=== PATIENT | male | born 1975 | race Caucasian/White ===

== ENCOUNTER 2019-06-27 21:23 | Inpatient (IN) | payer MEDICAID, SELFPAY ==
[~2019-06-27] VITALS: Ht 165.1 cm; Wt 70.8 kg
[2019-06-27 21:25] VITALS: BP 121/87
--- NOTE | 2019-06-27 21:44 | NUR ---
PT AMBULATEDF TO ER BED 01
--- NOTE | 2019-06-27 21:44 | NUR ---
Pt placed on pulse ox, and 3 lead ecg.
--- NOTE | 2019-06-27 21:45 | NUR ---
44 YO MALE BIB SELF FOR C/C OF SOB, COUGH, AND FEVER X3 DAYS. PT STATES THAT HIS MOTHER AND SISTER WHO HE LIVES WITH TESTED POSITIVE FOR COVID-19 AND ARE CURRENTLY HOSPITALIZED IN THIS HISPITAL. PT STATES HE TOOK IBUPROFEN FOR FEVER EARLIER TODAY WITH NO RELIEF. S1S2 HEARD. EQUAL RISE AND FALL OF CHEST. CRACKLES HEARD IN BILATERAL BASES. APPETITE CHANGES WITH NAUSEA BUT NO VOMITING. PT STATES HE HAD DIARRHEA STOOL TODAY. BOWEL SOUNDS ACTIVE IN ALL 4 QUADRANTS. CAP REFILL <3. NO EDEMA NOTED. PERIPHERAL PULSES EQUAL AND REGULAR. PT PLACED ON MONITOR. BED LOCKED AND IN LOWEST POSITION. PPE WORN FOR ALL PT INTERATION. NO MED HX NO RX NKA
--- NOTE | 2019-06-27 22:15 | NUR ---
Pt is aaox4, pt care explaine parker pt verbalizes understanding. HL est g20 on pt RtAc, infusing well. Bld drawn at the bedside to be sent to lab after proper labelling. Pt care to Markell MARROQUIN.
--- NOTE | 2019-06-27 22:21 | NUR ---
STAT LABS DRAWN AND GIVEN TO COCOA BEAN ROASTER HELPER.
--- NOTE | 2019-06-27 22:22 | NUR ---
PT UNABLE TO PROVIDE URINE AT THIS TIME.
--- NOTE | 2019-06-27 22:28 | NUR ---
RT AT BEDSIDE.
--- NOTE | 2019-06-27 22:31 | NUR ---
DR. RDZ AT BEDSIDE.
[2019-06-27 22:43] LABS: BASOPHILS % (AUTO) 0.2 % (0.0-2.0); HEMATOCRIT 48.1 % (36-52); HEMOGLOBIN 16.8 g/dL (12.0-18.0); LYMPHOCYTES # (AUTO) 0.7 K/uL (2.0-11.5); LYMPHOCYTES % (AUTO) 11.6 % (20.5-51.1); MEAN CORPUSCULAR HEMOGLOBIN 29 pg (27-31); MEAN CORPUSCULAR HGB CONC 35 g/dL (33-37); MEAN CORPUSCULAR VOLUME 82.1 fL (80-94); MONOCYTES # (AUTO) 0.3 K/uL (0.8-1.0); MONOCYTES % (AUTO) 5.4 % (1.7-9.3); NEUTROPHILS # (AUTO) 4.6 K/uL (1.8-7.7); NEUTROPHILS % (AUTO) 82.8 % (42.2-75.2); PLATELET COUNT (AUTO) 163 K/uL (140-450); RED BLOOD CELL COUNT(AUTO) 5.86 MIL/uL (4.20-6.10); WHITE BLOOD COUNT (AUTO) 5.6 K/uL (4.8-10.8)
--- NOTE | 2019-06-27 22:49 | NUR ---
XR AT BEDSIDE
--- NOTE | 2019-06-27 22:52 | NUR ---
FLU, RSV, AND URINE WALKED OVER TO LAB.
[2019-06-27 23:02] LABS: APPEARANCE,URINE CLEAR (CLEAR); BILIRUBIN,URINE NEGATIVE (NEGATIVE); BLOOD, URINE NEGATIVE (NEGATIVE); COLOR,URINE YELLOW (YELLOW); LEUKOCYTE ESTERASE ,URINE NEGATIVE (NEGATIVE); NITRITE, URINE NEGATIVE (NEGATIVE); UGLUCOSE NEGATIVE (NEGATIVE)
[2019-06-27 23:04] LABS: ALBUMIN 3.7 g/dL (3.4-5.0); ANION GAP 15.4 (8-16); CARBON DIOXIDE 24.9 mmol/L (21-32); CREATININE 1.1 mg/dL (0.6-1.3); POTASSIUM 3.3 mmol/L (3.5-5.1); TOTAL BILIRUBIN 0.7 mg/dL (0.0-1.0)
[2019-06-27 23:12] LABS: PROTHROMBIN TIME 10.4 secs (10.8-13.4)
[2019-06-27 23:18] LABS: C-REACTIVE PROTEIN QUANT 9.1 mg/dL (0.0-0.9); LACTATE DEHYDROGENASE 350 U/L (85-227)
[2019-06-27 23:30] LABS: RSV NEGATIVE (NEGATIVE)
[2019-06-27 23:31] LABS: RBC,URINE 0-5 /HPF (0-5); WBC,URINE 0-5 /HPF (0-5)
[2019-06-28 00:07] LABS: FIBRINOGEN 496 mg/dL (200-400)
--- NOTE | 2019-06-28 00:13 | NUR ---
PT SLEEPING IN BED. SIDE RAILS X1. BED LOCKED AND IN LOWEST POSITION.
[2019-06-28 00:26] LABS: D-DIMER < 100 ng/ml (0-400)
[2019-06-28] MEDS ORDERED: AZITHROMYCIN 500 MG in DEXTROSE 5% 250 ML IV ONE (00:45)
[2019-06-28] MEDS ORDERED: AZITHROMYCIN 500 MG INJ VIAL IV ONE (00:51)
[2019-06-28] MEDS ORDERED: ONDANSETRON 4 MG/2 ML VIAL IVP PRN (01:00)
[2019-06-28] MEDS ORDERED: HYDROcodone/APAP 7.5/325 MG 1 TAB PO PRN (01:00)
[2019-06-28 01:31] LABS: MAGNESIUM 1.9 mg/dL (1.8-2.4); THYROID STIMULATING HORMONE 3.56 uIU/mL (0.34-3.74)
[2019-06-28 01:38] LABS: CHOL/HDL RATIO 3.9 (1-4.5)
[2019-06-28 01:57] LABS: BARBITURATE, URINE NEGATIVE ng/ml (NEG <=200); BENZODIAZEPINE, URINE NEGATIVE ng/mL (NEG <=200); CANNABINOID, URINE NEGATIVE ng/mL (NEG <=50); COCAINE, URINE NEGATIVE ng/mL (NEG <=300); OPIATE, URINE NEGATIVE ng/mL (NEG <=2000); PHENCYCLIDINE SCREEN,URINE NEGATIVE ng/mL (NEG <=25)
--- NOTE | 2019-06-28 02:10 | NUR ---
PT ARRIVED FROM ER VIA GURNEY. REPORT GIVEN BY ER NURSE. PT IS AWAKE, ALERT, AND ORIENTED. ABLE TO MAKE NEEDS KNOWN. COOPERATIVE TO CARE. VITAL SIGNS TAKEN. RESPIRATIONS EVEN AND UNLABORED ON ROOM AIR. TEMP 101.3. IV ACCESS ON R AC G20 CLEAN AND INTACT. AZITHROMYCIN INFUSING FROM ER. PT COMPLAINTS OF MILD BODY ACHES. NOTED TO HAVE INTERMITTENT DRY, NON PRODUCTIVE COUGH. PT ORIENTED TO ROOM. PLAN OF CARE DISCUSSED. CALL LIGHT WITHIN REACH. AWAITING MD ORDERS. WILL CONTINUE TO MONITOR.
--- NOTE | 2019-06-28 02:10 | NUR ---
Patient will be admitted to care of [facility]. Admited to TELE. Will go to room 130. Belongings list completed. Report to PRICILLA MARROQUIN.
[2019-06-28 02:58] VITALS: BP 114/76
[2019-06-28 04:00] VITALS: BP 112/71
[2019-06-28] MEDS: NACL 0.9% 1,000 ML IV SCH ×2 (05:32→21:22)
[2019-06-28] MEDS: ACETAMINOPHEN 325 MG TAB PO PRN ×2 (05:33→21:22)
--- NOTE | 2019-06-28 05:33 | NUR ---
MD ORDERS JUST GOT VERIFIED BY PHARMACY. VITAL SIGNS TAKEN. TEMP 100.9. PRN MEDS GIVEN ORDERED. COOLING MEASURES IN PLACE. CALL LIGHT WITHIN REACH. WILL CONTINUE TO MONITOR.
--- NOTE | 2019-06-28 07:01 | NUR ---
ENDORSED TO DAY SHIFT NURSE FOR CONTINUITY OF CARE. PATIENT IN STABLE CONDITION.
--- NOTE | 2019-06-28 07:15 | NUR ---
RECEIVE REPORT FROM NIGHT NURSE FOR CONTINUITY OF CARE, PT IS AAOX4, PT IS STABLE, NO SIGNS OF DISTRESS NOTED, RESPIRATIONS ARE EVEN AND UNLABORED ON ROOM AIR, PT HAS RIGHT AC 20G IV INFUSING NORMAL SALINE AT50ML/H, INTRODUCE SELF, UPDATED WHITE BOARD, BED IN LOW POSITION, SAFETY MEASURES IN PLACE, ALL NEEDS MET AT THIS TIME, CALL LIGHT WITHIN REACH.
[2019-06-28 08:00] VITALS: BP 101/65
[2019-06-28 08:23] LABS: BASOPHILS % (AUTO) 0.9 % (0.0-2.0); HEMATOCRIT 46.2 % (36-52); HEMOGLOBIN 15.8 g/dL (12.0-18.0); LYMPHOCYTES # (AUTO) 0.9 K/uL (2.0-11.5); LYMPHOCYTES % (AUTO) 20.9 % (20.5-51.1); MEAN CORPUSCULAR HEMOGLOBIN 29 pg (27-31); MEAN CORPUSCULAR HGB CONC 34 g/dL (33-37); MEAN CORPUSCULAR VOLUME 83.2 fL (80-94); MONOCYTES # (AUTO) 0.4 K/uL (0.8-1.0); MONOCYTES % (AUTO) 8.9 % (1.7-9.3); NEUTROPHILS % (AUTO) 69.3 % (42.2-75.2); PLATELET COUNT (AUTO) 140 K/uL (140-450); RED BLOOD CELL COUNT(AUTO) 5.55 MIL/uL (4.20-6.10); RED CELL DISTRIBUTION WIDTH 15.1 % (11.6-13.7); WHITE BLOOD COUNT (AUTO) 4.3 K/uL (4.8-10.8)
[2019-06-28] MEDS ORDERED: ENOXAPARIN 30 MG/0.3 ML SYR SUBQ SCH (09:00)
[2019-06-28 09:25] LABS: ANION GAP 9.7 (8-16); CARBON DIOXIDE 30.2 mmol/L (21-32); CREATININE 1.2 mg/dL (0.6-1.3); POTASSIUM 3.9 mmol/L (3.5-5.1)
[2019-06-28] MEDS: ZINC SULF 220 MG CAP PO SCH (09:32)
[2019-06-28] MEDS: AZITHROMYCIN 250 MG TAB PO SCH (09:32)
[2019-06-28] MEDS: ASCORBIC ACID 500 MG TAB PO SCH (09:32)
--- NOTE | 2019-06-28 09:44 | NUR ---
ADMINISTERED SCHEDULED MEDICATION, MEDICATION EDUCATION GIVEN, PT VERBALIZED UNDERSTANDING, PT TOLERATED MEDICATION WELL, PT IS STABLE, CALL LIGHT WITHIN REACH.
[2019-06-28 09:46] LABS: PHOSPHORUS 3.4 mg/dL (2.5-4.9)
[2019-06-28] MEDS: ENOXAPARIN 40 MG/0.4 ML SYR SUBQ SCH (10:28)
--- NOTE | 2019-06-28 11:42 | NUR ---
ADMINISTERED SCHEDULED MEDICATION, MEDICATION EDUCATION GIVEN, PT VERBALIZED UNDERSTANDING, PT IS STABLE, CALL LIGHT WITHIN REACH.
[2019-06-28 12:00] VITALS: BP 106/68
--- NOTE | 2019-06-28 13:00 | NUR ---
PT IS WATCHING TV IN BED, PT IS STABLE, RESPIRATIONS ARE EVEN AND UNLABORED ON 2L NASAL CANNULA, SAFETY MEASURES IN PLACE, CALL LIGHT WITHIN REACH.
--- NOTE | 2019-06-28 15:10 | NUR ---
PT IS RESTING IN BED, PT IS STABLE, NO SIGNS OF DISTRESS NOTED, RESPIRATIONS ARE EVEN AND UNLABORED ON 2L NASAL CANNULA, CALL LIGHT WITHIN REACH.
[2019-06-28 16:00] VITALS: BP 113/73
--- NOTE | 2019-06-28 17:00 | NUR ---
PT RESTING IN BED, NO SIGNS OF DISTRESS NOTED, PT IS STABLE, CALL LIGHT WITHIN REACH.
--- NOTE | 2019-06-28 19:08 | NUR ---
GAVE REPORT TO NIGHT NURSE FOR CONTINUITY OF CARE, PT IS STABLE.
--- NOTE | 2019-06-28 19:09 | NUR ---
RECEIVED REPORT FROM STATION MANAGER NURSE. PATIENT IN BED RESTING. HOB ELEVATED. ON O2 2LPM/NC. RESPIRATIONS EVEN AND UNLABORED. DENIES ANY PAIN OR DISCOMFORT AT THIS TIME. IV ACCES ON R AC CLEAN AND INTACT. IVF INFUSING WELL. PLAN OF CARE DISCUSSED. PATIENT VERBALIZED UNDERSTANDING. CALL LIGHT WITHIN REACH. WILL CONTINUE TO MONITOR.
[2019-06-28 20:00] VITALS: BP 113/65
--- NOTE | 2019-06-28 21:22 | NUR ---
VITAL SIGNS TAKEN. TEMP 101.6. PRN TYLENOL GIVEN ORDERED. COOLING MEASURES IN PLACE. RESPIRATIONS EVEN AND UNLABORED. O2 SAT 100. DENIES PAIN OR DISCOMFORT AT THIS TIME. CALL LIGHT WITHIN REACH. WILL CONTINUE TO MONITOR.
--- NOTE | 2019-06-28 22:22 | NUR ---
PT IN BED SLEEPING. O2 IN PLACE. O2 SAT 99%. PT KEPT COMFORTABLE. CALL LIGHT WITHIN REACH. WILL CONTINUE TO MONITOR.
[2019-06-29] VITALS: BP 103/64
--- NOTE | 2019-06-29 00:07 | NUR ---
VITAL SIGNS TAKEN. PATIENT AFEBRILE NOW. DENIES ANY DISCOMFORT AT THIS TIME. O2 IN PLACE. RESPIRATIONS EVEN AND UNLABORED. PT KEPT SAFE AND COMFORTABLE. WILL CONTINUE TO MONITOR.
--- NOTE | 2019-06-29 01:59 | NUR ---
PT SLEEPING. O2 SAT 96%. O2 IN PLACE. NO S/SX OF RESPIRATORY DISTRESS NOTED. WILL CONTINUE TO MONITOR.
[2019-06-29 04:00] VITALS: BP 111/61
--- NOTE | 2019-06-29 04:02 | NUR ---
VITAL SIGNS STABLE. PT AFEBRILE. RESPIRATIONS EVEN AND UNLABORED. NOT IN DISTRESS. CALL LIGHT WITHIN REACH. WILL CONTINUE TO MONITOR.
--- NOTE | 2019-06-29 06:59 | NUR ---
PATIENT HAS BEEN SCREENED AND CATEGORIZED LOW NUTRITION RISK. PATIENT WILL BE SEEN WITHIN 7 DAYS OF ADMISSION. 07/06/19 ORALIA BEARD MS, RDN
[2019-06-29 07:10] LABS: ANION GAP 13.1 (8-16); CARBON DIOXIDE 27.1 mmol/L (21-32); CREATININE 1.1 mg/dL (0.6-1.3); POTASSIUM 4.2 mmol/L (3.5-5.1)
--- NOTE | 2019-06-29 07:12 | NUR ---
ENDORSED TO DAYSHIFT NURSE FOR CONTINUITY OF CARE. PATIENT IN STABLE CONDITION.
[2019-06-29 07:13] LABS: LACTATE DEHYDROGENASE 294 U/L (85-227)
--- NOTE | 2019-06-29 07:13 | NUR ---
RECEIVED REPORT FROM ELECTRIC TRUCK DRIVER NURSE AT BEDSIDE FOR CONTINUITY OF CARE. PATIENT IN BED RESTING SLEEPING, RESPIRATIONS EVEN AND UNLABORED ON ROOM AIR, O2 SATURATION 92%. DENIES ANY PAIN OR DISCOMFORT AT THIS TIME. IV ACCES ON R AC CLEAN AND INTACT. IVF INFUSING WELL. DROPLET PRECAUTIONS IN PLACE, CALL LIGHT WITHIN REACH. WILL CONTINUE TO MONITOR.
[2019-06-29 07:15] LABS: BASOPHILS % (AUTO) 0.7 % (0.0-2.0); HEMATOCRIT 48.5 % (36-52); HEMOGLOBIN 16.6 g/dL (12.0-18.0); LYMPHOCYTES # (AUTO) 0.6 K/uL (2.0-11.5); LYMPHOCYTES % (AUTO) 13.2 % (20.5-51.1); MEAN CORPUSCULAR HEMOGLOBIN 29 pg (27-31); MEAN CORPUSCULAR HGB CONC 34 g/dL (33-37); MEAN CORPUSCULAR VOLUME 83.7 fL (80-94); MONOCYTES # (AUTO) 0.3 K/uL (0.8-1.0); NEUTROPHILS # (AUTO) 3.5 K/uL (1.8-7.7); NEUTROPHILS % (AUTO) 80.1 % (42.2-75.2); PLATELET COUNT (AUTO) 131 K/uL (140-450); RED BLOOD CELL COUNT(AUTO) 5.79 MIL/uL (4.20-6.10); RED CELL DISTRIBUTION WIDTH 15.4 % (11.6-13.7); WHITE BLOOD COUNT (AUTO) 4.4 K/uL (4.8-10.8)
[2019-06-29 07:40] LABS: MAGNESIUM 1.9 mg/dL (1.8-2.4); PHOSPHORUS 2.4 mg/dL (2.5-4.9)
[2019-06-29 08:00] VITALS: BP 123/67
[2019-06-29 08:09] LABS: FIBRINOGEN 500 mg/dL (200-400)
[2019-06-29 08:19] LABS: D-DIMER 333 ng/ml (0-400)
[2019-06-29] MEDS: AZITHROMYCIN 250 MG TAB PO SCH (08:45)
[2019-06-29] MEDS: LACTOBACILLUS RHAMNOSUS GG 1 EACH CAP PO SCH (08:45)
[2019-06-29] MEDS: ACETAMINOPHEN 325 MG TAB PO PRN (08:45)
[2019-06-29] MEDS: ASCORBIC ACID 500 MG TAB PO SCH (08:45)
[2019-06-29] MEDS: ZINC SULF 220 MG CAP PO SCH (08:45)
--- NOTE | 2019-06-29 08:45 | NUR ---
ORDERED MEDICATIONS GIVEN. PATIENT TOLERATED THEM WELL. VERBALIZED PLAN OF CARE TO PATIENT, HE VERBALIZED UNDERSTANDING. TEMP 101.4, PRN TYLENOL GIVEN. COOLING MEASURES IN PLACE, NO S/S OF DISTRESS OR SOB NOTED AT THIS TIME. DROPLET PRECAUTIONS IN PLACE, CALL LIGHT WITHIN REACH, WILL CONTINUE TO MONITOR PATIENT.
[2019-06-29] MEDS: ENOXAPARIN 40 MG/0.4 ML SYR SUBQ SCH (08:46)
--- NOTE | 2019-06-29 11:42 | NUR ---
ORDERED MEDICATION GIVEN. PATIENT TOLERATED IT. PT'S BEDDING, LINENS AND GOWNS CHANGED REQUESTED. PATIENT HAS NO COMPLAINTS AT THIS TIME. EDUCATED HIM ABOUT RESTING/SLEEPING IN PRONE POSITION. IF NOT PRONE, THEN AT LEAST HIS SIDE, HE VERBALIZED UNDERSTANDING AND WILLING TO TRY. DROPLET PRECAUTION IN PLACE, CALL LIGHT WITHIN REACH, WILL CONTINUE TO MONITOR PATIENT.
[2019-06-29 12:00] VITALS: BP 105/66
--- NOTE | 2019-06-29 13:30 | NUR ---
PATIENT RESTING IN BED ON HIS SIDE. NO S/S OF DISTRESS NOTED AT THIS TIME. WILL CONTINUE TO MONITOR PATIENT.
--- NOTE | 2019-06-29 13:45 | NUR ---
TOLERATED INCENTIVE SPIROMETRY THERAPY WELL WITHOUT INCIDENT ENCOURAGED PATIENT WITH ACKNOWLEDGEMENT TO USE INCENTIVE SPIROMETRY EVERY 1-2 HOURS WHILE AWAKE
--- NOTE | 2019-06-29 16:29 | NUR ---
RECEIVED CALL FROM LAB, PATIENT POSITIVE FOR COVID 19, MANDREL PRESS HAND UZAIR AWARE, RESIDENTS AWARE. WILL CONTINUE TO MONITOR PATIENT.
[2019-06-29 16:30] VITALS: BP 132/67
--- NOTE | 2019-06-29 16:35 | NUR ---
PATIENT COUGHING WITH PHLEGM AND SOB. NC O2 2L PUT BACK ON PATIENT. VS 135/72, TEMP 99.2, HR 105, O2 SATURATION 94%, RR 26, EXPLAINED TO PATIENT IMPORTANCE OF PRONE POSITION AND IS USE. HE VERBALIZED UNDERSTANDING. WILL CONTINUE TO MONITOR PATIENT.
[2019-06-29] MEDS: NACL 0.9% 1,000 ML IV SCH (16:50)
--- NOTE | 2019-06-29 19:28 | NUR ---
REPORT GIVEN TO BUSHWALKING GUIDE NURSE AT BEDSIDE FOR CONTINUITY OF CARE. PATIENT RESTING IN BED.
--- NOTE | 2019-06-29 19:30 | NUR ---
RECEIVED BEDSIDE REPORT FROM DAY SHIFT NURSE. PATIENT IS AWAKE, ALERT, AND COOPERATIVE. RESPIRATION EVEN UNLABORED ON 2L NC O2. NO DISTRESS NOTED. SKIN IS WARM AND DRY. IV PATENT AND INTACT. PLAN OF CARE WAS DISCUSSED. ALL SAFETY MEASURES IN PLACE. BED IS AT LOW POSITION. CALL LIGHT WITHIN REACH AND VERBALIZES ITS USE. WILL CONTINUE TO MONITOR.
[2019-06-29 20:00] VITALS: BP 115/79
--- NOTE | 2019-06-29 20:10 | NUR ---
INITIAL ASSESSMENT DONE. VITALS WERE TAKEN. PATIENT IN STABLE CONDITION. NO DISTRESS NOTED. WILL CONTINUE TO MONITOR.
--- NOTE | 2019-06-29 21:00 | NUR ---
CHECKED PATIENT. PATIENT SLEEPING RESPIRATION EVEN UNLABORED ON 2L NC O2. NO DISTRESS NOTED. WILL CONTINUE TO MONITOR.
--- NOTE | 2019-06-29 23:55 | NUR ---
VITALS WERE TAKEN. PATIENT IN STABLE CONDITION. NO DISTRESS NOTED. WILL CONTINUE TO MONITOR.
[2019-06-30] VITALS: BP 111/73
--- NOTE | 2019-06-30 02:06 | NUR ---
CHECKED PATIENT. PATIENT SLEEPING RESPIRATION EVEN UNLABORED ON 2L NC O2. SATING 94%. NO DISTRESS NOTED. WILL CONTINUE TO MONITOR.
[2019-06-30 04:00] VITALS: BP 112/76
--- NOTE | 2019-06-30 04:10 | NUR ---
VITALS WERE TAKEN. PATIENT IN STABLE CONDITION. NO DISTRESS NOTED. WILL CONTINUE TO MONITOR
[2019-06-30 05:38] LABS: BASOPHILS % (AUTO) 0.6 % (0.0-2.0); LYMPHOCYTES # (AUTO) 0.7 K/uL (2.0-11.5); LYMPHOCYTES % (AUTO) 16.4 % (20.5-51.1); MEAN CORPUSCULAR HEMOGLOBIN 28 pg (27-31); MEAN CORPUSCULAR HGB CONC 34 g/dL (33-37); MEAN CORPUSCULAR VOLUME 83.5 fL (80-94); MONOCYTES # (AUTO) 0.3 K/uL (0.8-1.0); MONOCYTES % (AUTO) 7.7 % (1.7-9.3); NEUTROPHILS # (AUTO) 3.2 K/uL (1.8-7.7); NEUTROPHILS % (AUTO) 75.3 % (42.2-75.2); PLATELET COUNT (AUTO) 138 K/uL (140-450); RED BLOOD CELL COUNT(AUTO) 5.63 MIL/uL (4.20-6.10); RED CELL DISTRIBUTION WIDTH 15.3 % (11.6-13.7); WHITE BLOOD COUNT (AUTO) 4.3 K/uL (4.8-10.8)
[2019-06-30 07:12] LABS: PHOSPHORUS 2.6 mg/dL (2.5-4.9)
--- NOTE | 2019-06-30 07:12 | NUR ---
ENDORSED PATIENT TO DAY SHIFT NURSE. PATIENT IN STABLE CONDITION.
--- NOTE | 2019-06-30 07:14 | NUR ---
RECEIVED REPORT FROM REVIEW ANALYST NURSE, FOR CONTINUITY OF CARE. PT IS LYING IN BED, SUPINE. A&OX4. SLOVAK SPEAKING. RESPIRATIONS ARE EVEN AND UNLABORED, BREATHING TO 2L N/C. SAFETY MEASURES IN PLACE; BED IN LOW POSITION, CALL LIGHT WITHIN REACH. TELE MONITOR ATTACHED. NO DISTRESS NOTED. WILL CONTINUE TO MONITOR.
[2019-06-30 07:19] LABS: ANION GAP 12.9 (8-16); CARBON DIOXIDE 26.5 mmol/L (21-32); POTASSIUM 4.4 mmol/L (3.5-5.1)
[2019-06-30 07:20] LABS: CREATININE 1.2 mg/dL (0.6-1.3)
[2019-06-30 08:00] VITALS: BP 119/82
[2019-06-30] MEDS: LACTOBACILLUS RHAMNOSUS GG 1 EACH CAP PO SCH (08:49)
[2019-06-30] MEDS: ASCORBIC ACID 500 MG TAB PO SCH (08:49)
[2019-06-30] MEDS: ZINC SULF 220 MG CAP PO SCH (08:49)
[2019-06-30] MEDS: AZITHROMYCIN 250 MG TAB PO SCH (08:49)
[2019-06-30] MEDS: ENOXAPARIN 40 MG/0.4 ML SYR SUBQ SCH (08:50)
[2019-06-30 09:00] LABS: FERRITIN 357 ng/mL (30 - 400)
--- NOTE | 2019-06-30 09:06 | NUR ---
PT IS LYING IN BED AA&OX4. CANADIAN SPEAKING. BREAKFAST TRAY DELIVERED, AND SCHEDULED MEDS DUE, GIVEN. PT'S PO MEDS CRUSHED, AND MIXED WITH ORANGE JUICE. PT TOLERATED PO MEDS WELL. VITAL SIGNS STABLE; TEMP: 98.4 F; BP:119/82; SPO2: 93%; HR: 99; RESPIRATIONS: 18, BREATHING TO RA. PT STATED THAT HE WILL PUT THE O2 VIA NC BACK ON WHEN FINISHED WITH BREAKFAST. NO ACUTE DISTRESS NOTED. SAFETY MEASURES IN PLACE; BED IN LOW POSITION, CALL LIGHT WITHIN REACH. TELE MONITOR ATTACHED. WILL CONTINUE TO MONITOR.
--- NOTE | 2019-06-30 10:46 | NUR ---
DISCHARGE PLANNING: THIS IS A 44 Y/O MALE PATIENT FROM HOME, WHO CAME IN DUE TO NON PRODUCTIVE COUGH, SUBJECTIVE FEVERS AND GI UPSET. INITIAL DIAGNOSIS OF PNEUMONIA, R/O COVID. CURRENT LABS WBC 4.3, H/H 16.0/47.0, NA/K 138/4.4, BUN/CREA 10/1.2 AND C REACTIVE PROTEIN 14.6. NEGATIVE FOR INF A AND B AND COVID POSITIVE. NO MRSA NARES. URINE CS NEGATIVE. BLOOD CS NO GROWTH AFTER 48 HOURS. ON ROCEPHIN AND AZITHROMYCIN. CXR ON ADMISSION SHOWED PATCHY BILATERAL AIRSPACE DISEASE. PULMO AND ID CONSULTS IN PLACE. Addendum: 07/01/19 at 1145 by Carrie Mckenzie TRANSFERRED TO ICU YESTERDAY 06/30/2019. ON O2 AT 30 LPM/NC, O2 SAT 90%. CURRENT LABS INCLUDE WBC 5.8, H/H 15.5/45.2, NA/K 137/3.8, BUN/CREA 12/1.0, CRP 16.6 AND D DIMER 355. NO MRSA NARES. URINE CS NEGATIVE. BLOOD CS NO GROWTH AFTER 48 HOURS. PULMO AND ID CONSULTS IN PLACE. DC PLAN PENDING ON PATIENT'S RESPONSE TO TREATMENT. Addendum: 07/02/19 at 1144 by Carrie Mckenzie CM STILL ON HIGH FLOW O2 AT 30 LPM-O2 96%. CURRENT LABS INCLUDE WBC 9.9, H/H 15.0/44.4, NA/K 139/4.1, BUN/CREA 9/1.0, C REACTIVE PROTEIN AND ALB 2.2. ON LOVENOX. CURRENT CXR SHOWED BILATERAL PATCHY INFILTRATE UNCHANGED. ID, PULMO CONSULTS IN PLACE. DC PLAN PENDING ON PATIENT'S RESPONSE TO TREATMENT. Addendum: 07/03/19 at 1041 by Carrie Mckenzie STILL ON HIGH FLOW AT 30 LPM, O2 SAT 96%. CURRENT LABS WNL. CURRENT CXR SHOWED NO SIGNIFICANT CHANGE. SEEN BY ADAN-ENCOURAGE SELF PRONING, TITRATE O2 SAT GREATER THAN 90%, LASIX IV BID. DISCUSSED DURING BED HUDDLE PATIENT IS FOR POSSIBLE TELE DOWNGRADE LATER TODAY. Addendum: 07/04/19 at 1443 by Carrie Mckenzie CM DOWNGRADED TO TELE. CURRENT LABS WNL. ON OXIMIZER AT 5LPM. CURRENT CXR SHOWED MILDLY INCREASED BILATERAL INFILTRATES. ID AND PULBRENDA CONSULTS IN PLACE. DC PLAN PENDING ON PATIENT'S RESPONSE TO TREATMENT. Addendum: 07/07/19 at 1511 by Kaylin Fuentes CM DC PLANNING SEEN BY PULMO AND ID PER ID DISCONTINUE IV ABX CONTINUE TO MONITOR O2 TO KEEP IT >90% , CONTINUE TO WEAN PT OFF O2 TOLERATED CURRENTLY ON O2 3L/NC. CM TO FOLLOW Addendum: 07/08/19 at 1029 by Carrie Mckenzie CM ON O2 AT 2 LPM/NC, O2 SAT 97%. CURRENT LABS WNL. D DIMER 1270. CURRENT CXR STILL PENDING. ID, DB IN PLACE. DC PLAN FOR HOME O2, AWAITING FOR ORDER. DR. MAZARIEGOS AWARE. Addendum: 07/08/19 at 1138 by Carrie Mckenzie CM RECEIVED AN ORDER FOR HOME O2. CLINICALS AND ORDER FAXED TO [facility] AT [phone]. CONTACTED PER OF [facility] AT [phone], HE STATED IT WILL BE $150/MONTH AND $75 ONE TIME FEE FOR DELIVERY. CONTACTED PATIENT'S DAUGHTER IRVIN CRUZ AT [phone], TO DISCUSS DC PLAN BACK TO HOME WITH O2 AND IS IN AGREEMENT. WILL INFORM DR. MAZARIEGOS. Addendum: 07/08/19 at 1234 by Carrie Mckenzie Certificate of medical necessity for oxygen faxed to [facility]. Will follow up. Addendum: 07/08/19 at 1339 by Carrie Mckenzie RECEIVED A CALL FROM SMOOTH OF [facility], REQUESTING FOR CLINICALS. SHE STATED THAT THEY RAN THE ELIGIBILITY AND IT SHOWED THAT PATIENT IS ELIGIBLE FOR MEDICAL. CLINICALS FAXED TO [phone]. WILL FOLLOW UP. Addendum: 07/08/19 at 1353 by Carrie Mckenzie PER EAN OF [facility], THEIR DIABETES PHYSICIAN WILL CALL ME FOR ETA OF THE OXYGEN. DR. MAZARIEGOS AND PRIMARY CARA SORIANO MADE AWARE. Addendum: 07/08/19 at 1412 by Carrie Mckenzie CM PER NIKIA [facility] WILL BE AT 1500. DR. MAZARIEGOS AND PRIMARY CARA SORIANO MADE AWARE.
--- NOTE | 2019-06-30 11:23 | NUR ---
IV ANTIBIOTICS HUNG, AND RUNNING PER ORDERS. SAFETY MEASURES IN PLACE. TELE MONITOR ATTACHED. NO DISTRESS NOTED. WILL CONTINUE TO MONITOR.
--- NOTE | 2019-06-30 11:54 | NUR ---
VITAL SIGNS STABLE; TEMP: 98.5 F; BP:117/86; SPO2: 95%; HR: 90; RESPIRATIONS: 18, BREATHING TO N/C 2LPM.
--- NOTE | 2019-06-30 12:32 | NUR ---
LUNCH TRAY GIVEN. VITAL SIGNS TAKEN; VITAL SIGNS ARE STABLE. NC 2LPM; SPO2: 93%. TELE MONITOR ATTACHED. NO DISTRESS NOTED. WILL CONTINUE TO MONITOR.
--- NOTE | 2019-06-30 12:45 | NUR ---
INCENTIVE SPIROMETER GIVEN TO PATIENT, PATIENT TOLERATED WELL USING THE INCENTIVE SPIROMETER
[2019-06-30] MEDS: NACL 0.9% 1,000 ML IV SCH (12:58)
--- NOTE | 2019-06-30 13:26 | NUR ---
[employer] FABRICATOR NOTE: Basic Screen: Yes High Risk DC Screen State Line: IRVIN CRUZ Home Relationship: DAUGHTER Pre-Admission Living Arrangements: Lives with Other Prior ADL Independent Current Home Health Name/Tel: N/A Current DME/02 Name/Tel: N/A Current Hospice Name/Tel: N/A Current Dialysis Name/Tel: N/A Healthcare Decision Maker: Patient Advance Directive No Physician Orders for Life Sustaining Treatment Form No Patient/Family Have Educational Needs No Discipline: Case Mgt/Social Svcs Tentative Discharge Plan/Destination: No Needs Identified Will require assistance post discharge: No Referred to Knitting Machine Operator: No Tentative Discharge Plan Summary: PATIENT IS A 44-YEAR-OLD MALE ADMITTED FOR PNEUMONIA AND R/O COVID. PATIENT HAS NO PERTINENT PMHX. PATIENT WAS ADMITTED FROM HOME WHERE HE LIVES WITH HIS DAUGHTER AND FRIEND KATHIA DOWNEY [phone]. SW CONTACTED PATIENT'S DAUGHTER IRVIN CRUZ [phone] TO VERIFY DEMOGRAPHICS. PER IRVIN, PATIENT NOW LIVES WITH KATHIA DOWNEY AT [address] [place] [address]. IRVIN REPORTED NO HISTORY OF SUBSTANCE ABUSE OR MENTAL HEALTH AND THAT PATIENT IS ABLE TO COMPLETE ALL ADLS INDEPENDENTLY. TENTATIVE DISCHARGE PLAN IS FOR PATIENT TO RETURN HOME. NO FURTHER NEEDS IDENTIFIED. Signature: LIZA XIE Date: June 30, 2019 Time: 13:25
--- NOTE | 2019-06-30 14:20 | NUR ---
PT COMPLAINED OF SOB; O2 SAT 84%. HOB RAISED, O2 VIA N/C INCREASED TO 4 L; SPO2 INCREASED TO 97%. RESIDENT EXAMINED PT. RT GAVE PT A BREATHING TREATMENT. CURRENT O2 SAT IS 97%.
[2019-06-30] MEDS: ALBUTEROL HFA MDI 90 MCG/ACTUATION 8 GM INH PRN (14:43)
--- NOTE | 2019-06-30 17:01 | NUR ---
PT CONTINUES TO COMPLAIN OF SOB. SPO2: 97% ON 4L NC. RESIDENT IS AWARE; STAT ABG AND EKG ORDERED. WILL CONTINUE TO MONITOR.
--- NOTE | 2019-06-30 17:40 | NUR ---
RAPID RESPONSE CALLED AT THIS TIME PATIENT STATES C/O OF SOB "I CAN'T BREATH" PATIENT NOTED TO BE CLUTCHING CHEST ISSAC/CARA STATED THAT PATIENT DENIES CHEST PAIN DR. EVERARDO MAZARIEGOS AWARE
--- NOTE | 2019-06-30 17:45 | NUR ---
PT CONTINUES TO COMPLAIN OF SOB. RESPIRATIONS SHALLOW. PT STATES HE IS NOT ABLE TO TAKE A DEEP BREATH. RAPID RESPONSE CALLED. PT TRANSFERRED TO THE ICU. REPORT GIVEN TO RAMONA.
--- NOTE | 2019-06-30 17:45 | NUR ---
PATIENT TRANSFERRED TO ICU-4 PLACED ON SUPPLEMENTAL OXYGEN VIA E-TANK TO NASAL CANNUAL AT 6 LPM SATURATION 97% HR 100'S TOLERATED TRANSFER WELL WITHOUT INCIDENT
[2019-06-30 18:00] VITALS: BP 118/74
--- NOTE | 2019-06-30 18:00 | NUR ---
PT TRANSFERRED FROM TELE 130B TO ICU 4. REPORT RECEIVED FROM ISSAC MARROQUIN. PT IS AOX4, CO:SOB. PT WAS ON NC 4L. PT HAS BEEN PLACED ON HIGH FLOW O2, FIO2 45%. PT SAID HE FELT BETTER. VITALS TAKEN, WNL. IV TO RIGHT AC, SITE ASYMPTOMATIC, RUNNING NS AT 50ML/HR.
--- NOTE | 2019-06-30 18:25 | NUR ---
NEW IV INSERTED TO LEFT FA 20G BY NURSE SACHA. PT WAS ORIENTED TO ROOM AND CALL LIGHT WITHIN REACH. BED LOCKED IN LOWEST POSITION, FALL PRECAUTIONS IN PLACE. PT CURRENTLY WATCHING TV.
--- NOTE | 2019-06-30 19:01 | NUR ---
IV INSERTED IN L FA 20G. PATENT, FLUSHED AND ASYMPTOMATIC.
--- NOTE | 2019-06-30 19:15 | NUR ---
DR DIAS IN THE UNIT ,TSEE THE PATIENT. AND SAID PAATIENT CAN EATS.
--- NOTE | 2019-06-30 19:15 | NUR ---
RECEIVED PT FROM YANELIMTRAMONA BYRNE RN. A/O X4. DENIES PAIN @ THIS TIME. PERRL. MUCOUS MEMBRANES MOIST. SKIN TURGOR <3 SEC. SKIN WARM, DRY AND INTACT. LUNGS DIMINISHED THROUGHOUT. CONTINUES ON HIGH FLOW O2 @ 45% FI02, 30 LPM. SPO2 @ 97%. RT AC 20G PERIPHERAL IV PATENT, INFUSING NS @ 50 ML/HR. LT FA PERIPHERAL IV PATENT. BOWEL SOUNDS ACTIVE X4. NO ABD DISTENTION OBSERVED. DENIES PAIN UPON PALPATION. PT ABLE TO USE URINAL INDEPENDENTLY. LBM 06/27/2019, DIARRHEA. PT IN SEMI-FOWLERS WITH BED LOW AND LOCKED. CALL LIGHT WITHIN EASY REACH AND FUNCTIONING PROPERLY. ALL SAFETY PRECATIONS IN PLACE. MAINTAINING DROPLET PRECAUTIONS. WILL CONT TO MONITOR FOR CHANGES IN CONDITION.
[2019-06-30] MEDS ORDERED: FUROSEMIDE 20 MG/2 ML VIAL IVP ONE (19:30)
[2019-06-30 20:00] VITALS: BP 115/73
--- NOTE | 2019-06-30 20:47 | NUR ---
DR FISCHER AT BEDSIDE TO ASSESS PT @ THIS TIME. UPDATED ON PATIENT STATUS.
[2019-06-30 22:00] VITALS: BP 105/70
--- NOTE | 2019-06-30 23:00 | NUR ---
PT IN BED, EYES CLOSED. NO CONCERNS AND COMPLAINTS MADE AT THIS TIME. WILL CONTINUE TO MONITOR.
[2019-07-01] VITALS (13 sets, daily range): BP systolic 104–131; BP diastolic 53–78
--- NOTE | 2019-07-01 02:00 | NUR ---
PT ABLE TO REPOSITION HIMSELF IN BED. DENIES PAIN. ABLE TO USE THE URINAL. WILL CONTINUE TO MONITOR.
--- NOTE | 2019-07-01 04:00 | NUR ---
PT ABLE TO VOICE HIS NEEDS TO STAFF. BED IN LOWEST POSITION. CALL LIGHT AND HYDRATION WITHIN REACH. LATEST TEMP: 99.6, WILL RECHECK AGAIN LATER. WILL CONTINUE TO MONITOR.
[2019-07-01] MEDS ORDERED: CRUSHER, PILL MC ONE (05:29)
--- NOTE | 2019-07-01 05:30 | NUR ---
RECHECKED TEMP: 100.6 F, TYLENOL GIVEN ORDERED. MEDICATION CRUSHED AND MIXED IN ORANGE JUICE PER PATIENT REQUEST. WILL CONTINUE MONITOR.
[2019-07-01] MEDS: ACETAMINOPHEN 325 MG TAB PO PRN ×3 (05:31→18:27)
[2019-07-01 06:07] LABS: BASOPHILS % (AUTO) 0.7 % (0.0-2.0); HEMATOCRIT 45.2 % (36-52); HEMOGLOBIN 15.5 g/dL (12.0-18.0); LYMPHOCYTES # (AUTO) 0.7 K/uL (2.0-11.5); LYMPHOCYTES % (AUTO) 11.5 % (20.5-51.1); MEAN CORPUSCULAR HEMOGLOBIN 29 pg (27-31); MEAN CORPUSCULAR HGB CONC 34 g/dL (33-37); MEAN CORPUSCULAR VOLUME 83.2 fL (80-94); MONOCYTES # (AUTO) 0.4 K/uL (0.8-1.0); MONOCYTES % (AUTO) 6.8 % (1.7-9.3); NEUTROPHILS # (AUTO) 4.7 K/uL (1.8-7.7); PLATELET COUNT (AUTO) 159 K/uL (140-450); RED BLOOD CELL COUNT(AUTO) 5.44 MIL/uL (4.20-6.10); RED CELL DISTRIBUTION WIDTH 15.1 % (11.6-13.7); WHITE BLOOD COUNT (AUTO) 5.8 K/uL (4.8-10.8)
--- NOTE | 2019-07-01 06:43 | NUR ---
LATEST TEMP 98.8. PT HAS NO CONCERNS AND COMPLAINTS AT THIS TIME. WILL CONTINUE MONITOR PATIENT.
[2019-07-01 06:46] LABS: ALBUMIN 2.5 g/dL (3.4-5.0); ANION GAP 14.3 (8-16); CARBON DIOXIDE 25.5 mmol/L (21-32); POTASSIUM 3.8 mmol/L (3.5-5.1); TOTAL BILIRUBIN 0.5 mg/dL (0.0-1.0)
--- NOTE | 2019-07-01 07:30 | NUR ---
RECEIVED PT FROM PM SHIFT RN, PT A/O X4. BEDSIDE MONITOR SHOWS SR-ST. PERRL. OCCASIONALLY COUGH. PT ON HFNC, O2 SATS 93-96S%. RT AC 20G PERIPHERAL IV PATENT, INFUSING NS @ 50 ML/HR. INTACT AND PATENT. BOWEL SOUNDS ACTIVE . NO ABD DISTENTION OR PAIN NOTED. PT IN SEMI-FOWLERS WITH BED LOW AND LOCKED. CALL LIGHT WITHIN REACH AND FUNCTIONING PROPERLY. ALL SAFETY PRECAUTIONS IN PLACE. MAINTAINING AIRBORNE PRECAUTIONS. WILL CONT TO MONITOR PT. NO FEVER 98.0 F.
--- NOTE | 2019-07-01 08:00 | NUR ---
OFFERED PT BREAKFAST TRAY, ENCOURAGED PT TO EAT ENOUGH FOOD TO MAINTAIN NUTRITION.
[2019-07-01] MEDS: LACTOBACILLUS RHAMNOSUS GG 1 EACH CAP PO SCH (08:35)
[2019-07-01] MEDS: ASCORBIC ACID 500 MG TAB PO SCH (08:35)
[2019-07-01] MEDS: ZINC SULF 220 MG CAP PO SCH (08:35)
[2019-07-01] MEDS: ENOXAPARIN 40 MG/0.4 ML SYR SUBQ SCH (08:36)
[2019-07-01] MEDS: NACL 0.9% 1,000 ML IV SCH (08:36)
--- NOTE | 2019-07-01 08:38 | NUR ---
RECEIVED CALL FROM ICU NURSE PT WAS DESAT T0 80s I CHECKED PT AND PT HFNC TUBING CAME DISCONNECTED FROM TUBING I RE-CONNECTED TUBING TO CANNULA PT IS RESTING COMFORTABLY SAT 94% HR 86 Addendum: 07/01/19 at 0843 by Jayjay Corona Jr RT INFORMED ICU NURSE EMMETT OF PT CONDITION
--- NOTE | 2019-07-01 10:50 | NUR ---
CAME TO BEDSIDE TO CHECK PT. DR. AMAYA EXPLAINED BENEFITS TO SLEEP ON PRONE POSITION, PT DOES NOT WANT TO CHANGE POSITION.
--- NOTE | 2019-07-01 11:58 | NUR ---
OFFERED PT LUNCH TRAY, PT DOES NOT HAVE A GOOD APPETITE. ENCOURAGED PT TO EAT MORE FOOD. PT'S TEMP 100.4, TYLENOL GIVEN ORDERED .WILL CONTINUE TO MONITOR.
--- NOTE | 2019-07-01 13:21 | NUR ---
PT SITTING IN BED, DRINKING JUICE. O2 SATS 95%.
--- NOTE | 2019-07-01 13:53 | NUR ---
07/01/19 RD INITIAL ASSESSMENT COMPLETED PLEASE REFER TO NUTRITION ASSESSMENT UNDER CARE ACTIVITY FOR ESTIMATED NUTRITIONAL NEEDS. 1. CONTINUE REGULAR DIET TOLERATED 2. RECOMMEND ENSURE TID 3. ENCOURAGE PO INTAKE >75% OF MEALS 4. RD TO FOLLOW-UP 2-3 DAYS, HIGH RISK MARCELLO KELLER, RD
--- NOTE | 2019-07-01 14:00 | NUR ---
PT TEMP DECREASED TO 98.8F.
--- NOTE | 2019-07-01 15:19 | NUR ---
PT SLEEPING AT THIS TIME. BEDSIDE MONITOR SHOWS HR 96, O2 SATS 94%, BP 111/76. STILL ON HFNC 30L FIO2 45%. WILL CONTINUE TO MONITOR.
--- NOTE | 2019-07-01 17:30 | NUR ---
CHECKED PT TEMP 100.3F. ICE BAGS GIVEN TO PT. REMOVED BLANKET. DINNER TRAY OFFERED TO PT.
[2019-07-01] MEDS: guaiFENesin DM 200/20 MG-10 ML 10 ML UDC PO PRN (18:06)
--- NOTE | 2019-07-01 18:27 | NUR ---
PT ORAL TEMP 102.1F. TYLENOL 650 MG GIVEN AND REPLACED NEW ICE BAGS, WET TOWEL WIPED PT'S FACE, PT STATED HE FEELS MUCH BETTER. ENCOURAGED PT TO DRINK ENSURE TO MAINTAIN ENOUGH NUTRITION EVEN THOUGH HE DOES NOT WANT TO EAT. ALSO OFFERED ICE WATER.
--- NOTE | 2019-07-01 19:15 | NUR ---
ENDORSED PT TO PM SHIFT RN. PT HR 94, BP 141/79, O2 SATS 92 % AND RR27.
--- NOTE | 2019-07-01 19:16 | NUR ---
REPORT RECEIVED FROM AM NURSE AT BEDSIDE. PT IN STABLE CONDITION. AAOX4. NO COMPLAINTS OF PAIN. NO SOB ON HIGH FLOW MASK@30L AND FIO2@45% SATTING@91%. FEBRILE@100.5. TYL GIVEN BY AM SHIFT@1830. PT IS AMBULATORY. PT USES URINAL. PT ON REGULAR DIET. COOLING MEASURES BEING USED. PT +COVID19. IV SITE L FA 20G SL PATENT AND INTACT. R AC 20G RUNNING NS@50ML/HR PATENT AND INTACT. SKIN WARM, DRY, AND INTACT WITH NO OPEN WOUNDS. BED LOCKED IN LOW POSITION. CALL SORIANO WITHIN REACH. SAFETY PRECAUTION IN PLACE. ALL NEEDS MET AT THIS TIME.
--- NOTE | 2019-07-01 20:08 | NUR ---
RECEIVED REPORT FROM AM SHIFT. PATIENT SEEN AND ASSESSED. AUSCULTATION REVEALS BILATERAL CLEAR/DIMINISHED BREATH SOUNDS. PATIENT ON HFNC 30L AND FiO2 45% WITH SPO2 OF 97%. HOB > 30 DEGREES, BVM AT BEDSIDE, AND ALARMS SET AND AUDIBLE. PATIENT IS IN NO APPARENT RESPIRATORY DISTRESS AT THIS TIME. PRN TX NOT INDICATED AT THIS TIME. AIRWAY IS PATIENT. WILL CONTINUE TO MONITOR PATIENT.
--- NOTE | 2019-07-01 20:45 | NUR ---
PT IN STABLE CONDITION. TEMPERATURE OF 99.4. NO S/S OF DISTRESS. PT ON HIGH FLOW MASK@30L AND FIO2@45%. PT REFUSED PRONE POSITIONING.
--- NOTE | 2019-07-01 22:45 | NUR ---
SPOKE WITH FAMILY. PT SAID IT WAS OK TO GIVE INFORMATION TO YUNG CRUZ. INFORMED HER ABOUT THE PATIENT STATUS. TOLD PATIENT MD WANTS HIM TO SLEEP IN PRONE POSITION. PT REFUSED. EXPLAINED TO THE PATIENT'S FAMILY THE REASON FOR PRONE POSITION AND TO TALK HIM INTO SLEEPING IN PRONE.
[2019-07-02] VITALS (13 sets, daily range): BP systolic 92–128; BP diastolic 57–80
[2019-07-02] MEDS: ACETAMINOPHEN 325 MG TAB PO PRN ×2 (00:30→12:42)
--- NOTE | 2019-07-02 00:30 | NUR ---
TYL GIVEN FOR FEVER 101.2. PT TOLERATED WELL.
--- NOTE | 2019-07-02 02:05 | NUR ---
PT SLEEPING COMFORTABLY. REFUSED TO BE IN PRONE POSITION. VS WNL AND STABLE. WILL CONTINUE TO MONITOR.
--- NOTE | 2019-07-02 03:55 | NUR ---
RECHECKED TEMPERATURE@98.2.
[2019-07-02] MEDS: NACL 0.9% 1,000 ML IV SCH ×2 (04:58→23:47)
[2019-07-02 06:00] LABS: BASOPHILS % (AUTO) 0.3 % (0.0-2.0); HEMATOCRIT 44.4 % (36-52); LYMPHOCYTES # (AUTO) 0.7 K/uL (2.0-11.5); LYMPHOCYTES % (AUTO) 6.8 % (20.5-51.1); MEAN CORPUSCULAR HEMOGLOBIN 28 pg (27-31); MEAN CORPUSCULAR HGB CONC 34 g/dL (33-37); MEAN CORPUSCULAR VOLUME 83.9 fL (80-94); MONOCYTES # (AUTO) 0.4 K/uL (0.8-1.0); MONOCYTES % (AUTO) 4.1 % (1.7-9.3); NEUTROPHILS # (AUTO) 8.8 K/uL (1.8-7.7); NEUTROPHILS % (AUTO) 88.8 % (42.2-75.2); PLATELET COUNT (AUTO) 179 K/uL (140-450); RED BLOOD CELL COUNT(AUTO) 5.29 MIL/uL (4.20-6.10); RED CELL DISTRIBUTION WIDTH 15.2 % (11.6-13.7); WHITE BLOOD COUNT (AUTO) 9.9 K/uL (4.8-10.8)
--- NOTE | 2019-07-02 06:00 | NUR ---
PT SLEEPING COMFORTABLY BUT AROUSABLE. NO S/S OF DISTRESS NOTED. NO COMPLAINTS OF PAIN. NO SOB. AFEBRILE. WILL CONTINUE TO MONITOR.
[2019-07-02 06:24] LABS: ALBUMIN 2.2 g/dL (3.4-5.0); ANION GAP 13.4 (8-16); CARBON DIOXIDE 26.7 mmol/L (21-32); POTASSIUM 4.1 mmol/L (3.5-5.1); TOTAL BILIRUBIN 0.6 mg/dL (0.0-1.0)
--- NOTE | 2019-07-02 07:16 | NUR ---
REPORT GIVEN TO AM NURSE AT BEDSIDE. PT IN STABLE CONDITION.
--- NOTE | 2019-07-02 07:30 | NUR ---
REPORT RECEIVED FROM PATTERN LAYOUT WORKER NURSE. PT AAOX4, ON HIGH FLOW O2, FIO2 45%. USES URINAL AND BED REVELES. IV SITE TO L FA 20G SL, PATENT AND INTACT. R AC 20G RUNNING NS @ 50ML/HR, PATENT AND INTACT. TEMP 98.9F. SKIN WARM, DRY, AND INTACT SKIN INTACT. BED LOCKED IN LOWEST POSITION. CALL LIGHT WITHIN REACH.
--- NOTE | 2019-07-02 09:00 | NUR ---
BED BATH GIVEN. PROVIDED PT WITH BREAKFAST AND ENSURE. ALL NEEDS MET. PT HAD URINE 400ML, BMX1.
[2019-07-02] MEDS: LACTOBACILLUS RHAMNOSUS GG 1 EACH CAP PO SCH (09:02)
[2019-07-02] MEDS: ASCORBIC ACID 500 MG TAB PO SCH (09:02)
[2019-07-02] MEDS: ZINC SULF 220 MG CAP PO SCH (09:02)
[2019-07-02] MEDS: ENOXAPARIN 40 MG/0.4 ML SYR SUBQ SCH (09:04)
[2019-07-02 10:24] LABS: LACTATE DEHYDROGENASE 354 IU/L (0-214)
--- NOTE | 2019-07-02 13:45 | NUR ---
PT DENIES ANY PAIN, ENCOURAGED PT TO EAT MORE. PT REFUSED, HOWEVER, PT DID FINISH THE ENSURE
--- NOTE | 2019-07-02 15:52 | NUR ---
PT ON HFNC, NO RESP DISTRESS NOTED AT THIS TIME, FLOW OF 30 LPM, WILL TITRATE FIO2 TO KEEP SATURATED GREATER THAN 92%.
--- NOTE | 2019-07-02 16:22 | NUR ---
PT USED BEDPAN, BMX1, PASTY BROWN STOOL.
--- NOTE | 2019-07-02 20:00 | NUR ---
PATIENT IS ALERT AND ORIENTED X4. ABLE TO VOICE HIS NEEDS TO STAFFS. NO CONCERNS AND COMPLAINTS MADE. SKIN WARM, DRY AND INTACT. LEFT FA PERIPHERAL IV ASYMPTOMATIC. RIGHT AC PERIPHERAL IV G20 ASYMPTOMATIC, PATENT, INTACT INFUSING NORMAL SALINE @ 50ML/HR. PT AFEBRILE. ABLE TO USE URINAL TO VOID. ORAL MUCOSA PINK AND MOIST. ON HIGH FLOW OXYGEN FIO2 45% 30LPM, SATURATION ON THE 90'S. CALL LIGHT AND HYDRATION WITHIN REACH. BED IN LOWEST POSITION, LOCKED. DROPLET PRECAUTION MAINTAINED. WILL CONTINUE MONITOR PATIENT.
[2019-07-03] VITALS (12 sets, daily range): BP systolic 96–112; BP diastolic 30–76
--- NOTE | 2019-07-03 | NUR ---
PT RESTING IN BED, EYES CLOSED. NO COMPLAINTS AT THIS TIME. WILL CONTINUE TO MONITOR.
--- NOTE | 2019-07-03 02:00 | NUR ---
NO RESPIRATORY DISTRESS OBSERVED. WILL CONTINUE TO MONITOR PT. CALL LIGHT AND HYDRATION WITHIN REACH.
--- NOTE | 2019-07-03 04:45 | NUR ---
PT ABLE TO MAKE NEEDS KNOWN. ABLE TO USE THE URINAL. NO COMPLAINTS OF PAIN/ DISCOMFORT. WILL CONTINUE MONITOR PT.
[2019-07-03 05:57] LABS: BASOPHILS % (AUTO) 0.5 % (0.0-2.0); HEMATOCRIT 43.1 % (36-52); HEMOGLOBIN 14.6 g/dL (12.0-18.0); LYMPHOCYTES # (AUTO) 0.8 K/uL (2.0-11.5); LYMPHOCYTES % (AUTO) 12.8 % (20.5-51.1); MEAN CORPUSCULAR HEMOGLOBIN 29 pg (27-31); MEAN CORPUSCULAR HGB CONC 34 g/dL (33-37); MEAN CORPUSCULAR VOLUME 84.2 fL (80-94); MONOCYTES # (AUTO) 0.3 K/uL (0.8-1.0); MONOCYTES % (AUTO) 5.1 % (1.7-9.3); NEUTROPHILS # (AUTO) 4.9 K/uL (1.8-7.7); NEUTROPHILS % (AUTO) 81.6 % (42.2-75.2); PLATELET COUNT (AUTO) 230 K/uL (140-450); RED BLOOD CELL COUNT(AUTO) 5.12 MIL/uL (4.20-6.10); RED CELL DISTRIBUTION WIDTH 15.2 % (11.6-13.7)
--- NOTE | 2019-07-03 06:00 | NUR ---
RESTING IN BED. REFUSED PRONE POSITION. NO DISTRESS OBSERVED. WILL CONTINUE MONITOR.
[2019-07-03 06:10] LABS: LD2 FRACTION 27 % (25-40); LD5 FRACTION 11 % (4-20)
[2019-07-03 06:54] LABS: ALBUMIN 2.1 g/dL (3.4-5.0); ANION GAP 12.3 (8-16); CARBON DIOXIDE 26.7 mmol/L (21-32); CREATININE 0.9 mg/dL (0.6-1.3); TOTAL BILIRUBIN 0.3 mg/dL (0.0-1.0)
--- NOTE | 2019-07-03 07:19 | NUR ---
REPORT GIVEN TO DAY SHIFT RN FOR CONTINUITY OF CARE. ENDORSED.
[2019-07-03] MEDS: LACTOBACILLUS RHAMNOSUS GG 1 EACH CAP PO SCH (08:24)
[2019-07-03] MEDS: ZINC SULF 220 MG CAP PO SCH (08:24)
[2019-07-03] MEDS: ASCORBIC ACID 500 MG TAB PO SCH (08:25)
[2019-07-03] MEDS: ENOXAPARIN 40 MG/0.4 ML SYR SUBQ SCH (08:50)
--- NOTE | 2019-07-03 13:07 | NUR ---
07/03/19 RD FOLLOW UP COMPLETED PLEASE REFER TO NUTRITION ASSESSMENT UNDER CARE ACTIVITY FOR ESTIMATED NUTRITIONAL NEEDS. 1. RECOMMEND MECHANICAL SOFT REGULAR DIET TOLERATED 2. CONTINUE ENSURE TID 3. ENCOURAGE PO INTAKE >75% OF MEALS 4. RD TO FOLLOW-UP 2-3 DAYS, HIGH RISK MARCELLO KELLER, RD
[2019-07-03] MEDS: ALBUTEROL HFA MDI 90 MCG/ACTUATION 8 GM INH PRN (18:08)
--- NOTE | 2019-07-03 18:10 | NUR ---
PT WAS GIVEN DINNER. UPON CHECKING UP ON PT, PT STATED THAT HE COULD NOT BREATH. FURTHER ASSESSMENT REVEALED LABORED BREATHING W/ WHEEZES. SPO2 RANGING FROM 88-92%. RT WAS MADE AWARE AND ASKED TO ASSESS PATIENT. HE MENTIONED THAT RALES WAS HEARD ALONG W/ LABOR BREATHING. RT INFORMED NURSE THAT BREATHING TREATMENT WAS GIVEN VIA MDI. WILL CONTINUE TO MONITOR.
--- NOTE | 2019-07-03 20:00 | NUR ---
PT RECEIVED IN SUPINE POSITION. REFUSING PRONE POSITION. EDUCATED ON THE IMPORTANCE OF GOOD NUTRITION AND VERBALIZED UNDERSTANDING. PATIENT IS ALERT AND ORIENTED X4. ABLE TO VOICE HIS NEEDS TO STAFFS. PT AFEBRILE. ABLE TO USE URINAL TO VOID. ORAL MUCOSA PINK AND MOIST. ON HIGH FLOW OXYGEN FIO2 45% 30LPM, SATURATION ON THE 90'S. CALL LIGHT AND HYDRATION WITHIN REACH. NO CONCERNS AND COMPLAINTS MADE. SKIN WARM, DRY AND INTACT. LEFT FA PERIPHERAL IV ASYMPTOMATIC. RIGHT AC PERIPHERAL IV G20 ASYMPTOMATIC, PATENT, INTACT INFUSING NORMAL SALINE @ 50ML/HR. BED IN LOWEST POSITION, LOCKED. DROPLET PRECAUTION MAINTAINED. WILL CONTINUE MONITOR PATIENT.
[2019-07-03] MEDS: NACL 0.9% 1,000 ML IV SCH (20:58)
--- NOTE | 2019-07-03 22:15 | NUR ---
NO RESPIRATORY DISTRESS OBSERVED. ABLE TO VOICE HIS NEEDS. ABLE TO REPOSITION HIMSELF IN BED. URINAL EMPTIED. WILL CONTINUE TO MONITOR.
[2019-07-04] VITALS (9 sets, daily range): BP systolic 99–130; BP diastolic 60–84
--- NOTE | 2019-07-04 | NUR ---
PT RESTING IN BED. NO COMPLAINTS/ CONCERNS AT THIS TIME. CALL LIGHT AND HYDRATION WITHIN REACH. WILL CONTINUE MONITOR PATIENT.
[2019-07-04] MEDS: ACETAMINOPHEN 325 MG TAB PO PRN ×2 (01:32→12:34)
--- NOTE | 2019-07-04 01:32 | NUR ---
PT COMPLAINTS OF HEADACHE. TYLENOL GIVEN ORDERED. WILL REASSESS IN LATER TIME. WILL CONTINUE TO MONITOR PATIENT.
--- NOTE | 2019-07-04 02:32 | NUR ---
NO FURTHER COMPLAINTS OF PAIN MADE. PT IN BED WITH EYES CLOSED. CALL SORIANO AND HYDRATION WITHIN REACH. WILL CONTINUE TO MONITOR.
--- NOTE | 2019-07-04 05:00 | NUR ---
NO DISTRESS NOTED. ABLE TO MAKE NEEDS KNOWN. REFUSED PRONE POSITION. WILL CONTINUE TO MONITOR PT.
[2019-07-04 06:28] LABS: BASOPHILS % (AUTO) 0.6 % (0.0-2.0); EOSINOPHILS # (AUTO) 0.1 K/uL (0-0.4); EOSINOPHILS % (AUTO) 1.4 % (0.0-4.0); HEMOGLOBIN 14.8 g/dL (12.0-18.0); LYMPHOCYTES # (AUTO) 0.5 K/uL (2.0-11.5); LYMPHOCYTES % (AUTO) 9.5 % (20.5-51.1); MEAN CORPUSCULAR HEMOGLOBIN 28 pg (27-31); MEAN CORPUSCULAR HGB CONC 34 g/dL (33-37); MEAN CORPUSCULAR VOLUME 84.1 fL (80-94); MONOCYTES # (AUTO) 0.5 K/uL (0.8-1.0); NEUTROPHILS # (AUTO) 4.6 K/uL (1.8-7.7); NEUTROPHILS % (AUTO) 79.5 % (42.2-75.2); PLATELET COUNT (AUTO) 273 K/uL (140-450); RED BLOOD CELL COUNT(AUTO) 5.23 MIL/uL (4.20-6.10); RED CELL DISTRIBUTION WIDTH 15.3 % (11.6-13.7); WHITE BLOOD COUNT (AUTO) 5.8 K/uL (4.8-10.8)
[2019-07-04 07:02] LABS: ALBUMIN 2.1 g/dL (3.4-5.0); ANION GAP 11.3 (8-16); CARBON DIOXIDE 27.6 mmol/L (21-32); CREATININE 0.8 mg/dL (0.6-1.3); POTASSIUM 3.9 mmol/L (3.5-5.1); TOTAL BILIRUBIN 0.3 mg/dL (0.0-1.0)
--- NOTE | 2019-07-04 07:30 | NUR ---
REPORT RECEIVED FROM ORGANISATION AND METHODS ANALYST NURSE. PT AAOX4, ON HIGH FLOW O2, FIO2 45%. USES URINAL AND BED REVELES. IV SITE TO L FA 20G SL, PATENT AND INTACT. R AC 20G RUNNING NS @ 50ML/HR, PATENT AND INTACT. TEMP 98.9F. SKIN WARM, DRY, AND INTACT SKIN INTACT. BED LOCKED IN LOWEST POSITION. CALL LIGHT WITHIN REACH.
[2019-07-04] MEDS: ASCORBIC ACID 500 MG TAB PO SCH (09:30)
[2019-07-04] MEDS: LACTOBACILLUS RHAMNOSUS GG 1 EACH CAP PO SCH (09:30)
[2019-07-04] MEDS: ZINC SULF 220 MG CAP PO SCH (09:30)
--- NOTE | 2019-07-04 09:35 | NUR ---
URINE OUTPUT 350ML.
[2019-07-04] MEDS: ENOXAPARIN 40 MG/0.4 ML SYR SUBQ SCH (09:40)
--- NOTE | 2019-07-04 12:01 | NUR ---
CHANGED PT TO OXYMIZER FROM HIGHFLOW PER DR AMAYA
--- NOTE | 2019-07-04 12:30 | NUR ---
ENCOURAGED PT TO EAT MORE FOR LUNCH. PT AGREED.
--- NOTE | 2019-07-04 12:35 | NUR ---
PT C/O MILD HEADACHE, TYLENOL GIVEN.
--- NOTE | 2019-07-04 14:00 | NUR ---
PT DENIES ANY PAIN, ON OXYMIZER 5L, O2 SAT 95%.
--- NOTE | 2019-07-04 14:15 | NUR ---
RT SAID ABG WAS DONE AND RESULT IS GREAT.
--- NOTE | 2019-07-04 14:35 | NUR ---
TRANSFERRED PT TO ROOM 128A, REPORT GIVEN TO PRINCESS MARROQUIN
--- NOTE | 2019-07-04 14:36 | NUR ---
RECEIVED PATIENT FROM ICU NURSE RAMONA. RECEIVED PATIENT VIA GURNEY. AAOX4. [place]ER SPEAKING. RESPIRATIONS EVEN AND UNLABORED, ON 5L VIA OXIMIZER. VISIBLE CHEST RISE AND FALL NOTED. ON TELE MONITORING. ABDOMEN SOFT AND NONTENDER. SKIN WARM, DRY, AND INTACT. IV SITE IN THE RIGHT FA G20, RUNNING NS AT 40ML/HR. IV SITE IN THE LEFT FA, G20 SALINE LOCK. NO SIGNS OF IV INFILTRATION. PATIENT IS BEDREST. USES URINAL. ON FALL AND DROPLET PRECAUTIONS. BED IN LOW POSITION. CALL LIGHT IS WITHIN REACH. WILL CONTINUE TO MONITOR.
--- NOTE | 2019-07-04 14:40 | NUR ---
CHANGED NEW IV BAG OF NS 1000 ML AT A RATE OF 50 ML/HR. CHANGED NEW IV TUBING WELL. VS SIGNS CHECKED. BP 111/72, HR 71, O2SAT 97% ON 5L OXIMIZER, RESPIRATIONS 19 UNLABORED, TEMP 97.5, AFEBRILE. PAIN OF 3/10 HEADACHE. PATIENT STATED HE WANTS TYLENOL. WILL ADMINISTER TYLENOL.
--- NOTE | 2019-07-04 14:46 | NUR ---
TYLENOL WAS GIVEN 2HRS AGO IN ICU. INFORMED PATIENT IT IS NOT DUE YET AND I OFFERED NORCO. HE STATED HE WILL WAIT FOR THE TYLENOL.
--- NOTE | 2019-07-04 16:10 | NUR ---
VITAL SIGNS CHECKED. AFEBRILE. PAIN OF 3/10 HEADACHE. TYLENOL IS NOT DUE YET. BED IN LOW POSITION. CALL LIGHT IS WITHIN REACH. WILL CONTINUE TO MONITOR.
[2019-07-04] MEDS: NACL 0.9% 1,000 ML IV SCH (16:58)
--- NOTE | 2019-07-04 17:12 | NUR ---
PATIENT IS BEING CHANGED BY LEAD FRONT DESK AGENT. HR 84, O2SAT 99% ON 5L OXIMIZER. WILL CONTINUE TO MONITOR
--- NOTE | 2019-07-04 17:53 | NUR ---
PASSED DINNER TRAY.
--- NOTE | 2019-07-04 19:22 | NUR ---
ENDORSED PATIENT TO THE WIRELESS SALES ASSOCIATE NURSE FOR CONTINUITY OF CARE. PATIENT IS IN STABLE CONDITION.
--- NOTE | 2019-07-04 19:30 | NUR ---
RECEIVED REPORT FROM [facility] RN DAYSHIFT NURSE AT BEDSIDE FOR CONTINUITY OF CARE, PT IN STABLE CONDITION.
--- NOTE | 2019-07-04 20:00 | NUR ---
PT LYING IN BED AOX4 WITH [address] PT LUNG SOUNDS CLEAR BUT DIMINISHED. IV SITES R/FA 20G IN TACT AND RUNNING NORMAL SALINE AT 50MLS/HR. PT RESPIRATIONS EVEN AND UNLABORED. HE HAS NO S/S OF DISTRESS, HE SAYS HE HAS A SLIGHT HEADACHE BUT DECLINES MEDS RIGHT NOW. ALL REQUESTED NEEDS ATTENDED BY STAFF AND CALL SORIANO IN REACH. DROPLET PRECAUTIONS IN PLACE. V/S FOLLOWS; T 98.4 P 103 R 20 B/P 130/84 02 95% ON 8 LITERS VIA OXYMIZER. Addendum: 07/05/19 at 0549 by Bharti Kemp RN IT'S 5 LITERS OF OXYMIZER NOT 8
--- NOTE | 2019-07-04 21:00 | NUR ---
SPOKE BRIEFLY WITH FAMILY MEMBER WITH PT PERMISSION. PT CALLED THE FAMILY MEMBER BACK WITH IS PERSONAL PHONE. PT ALERT AND AWAKE IN NO S/S OF DISTRESS IN BED WITH 8 LITERS OXYMIZER RUNNING.
--- NOTE | 2019-07-04 22:30 | NUR ---
PT C/O 8/10 HEADACHE AND WAS GIVEN PO/PRN NORCO 7.5/325MG TABLET. WILL REASSESS PAIN LEVEL LATER. ALL DROPLET PRECAUTIONS IN PLACE.
[2019-07-05] VITALS: BP 120/82
[2019-07-05] MEDS: guaiFENesin DM 200/20 MG-10 ML 10 ML UDC PO PRN (02:26)
[2019-07-05] MEDS: ACETAMINOPHEN 325 MG TAB PO PRN ×2 (02:27→20:04)
--- NOTE | 2019-07-05 02:30 | NUR ---
THE PT C/O MILD HEADACHE PT GIVEN REQUESTED TYLENOL FOR MILD PAIN, PT ALSO GIVEN PO/PRN COUGH MEDICATION FOR C/O OF DRY COUGH. ALL DROPLET PRECAUTIONS IN PLACE.
[2019-07-05 04:00] VITALS: BP 96/64
--- NOTE | 2019-07-05 04:15 | NUR ---
PT IN BED NO C/O VOICED AT THIS TO TIME, PT IS SLEEPING BUT IS AROUSABLE TO VOICE AND LIGHT TOUCH. V/S FOLLOWS: T 97.6 P 78 R 18 B/P 96/64 02 96% WITH 5 LITERS 02 VIA OXYMIZER. ALL UNIVERSAL FALLS PRECAUTIONS IN PLACE WELL DROPLET PRECAUTIONS.
[2019-07-05 05:48] LABS: BASOPHILS # (AUTO) 0.1 K/uL (0.00-0.22); BASOPHILS % (AUTO) 0.8 % (0.0-2.0); EOSINOPHILS # (AUTO) 0.1 K/uL (0-0.4); EOSINOPHILS % (AUTO) 1.3 % (0.0-4.0); HEMATOCRIT 44.4 % (36-52); HEMOGLOBIN 14.7 g/dL (12.0-18.0); LYMPHOCYTES # (AUTO) 0.7 K/uL (2.0-11.5); LYMPHOCYTES % (AUTO) 10.4 % (20.5-51.1); MEAN CORPUSCULAR HEMOGLOBIN 28 pg (27-31); MEAN CORPUSCULAR HGB CONC 33 g/dL (33-37); MEAN CORPUSCULAR VOLUME 84.4 fL (80-94); MONOCYTES # (AUTO) 0.6 K/uL (0.8-1.0); MONOCYTES % (AUTO) 8.8 % (1.7-9.3); NEUTROPHILS % (AUTO) 78.7 % (42.2-75.2); PLATELET COUNT (AUTO) 321 K/uL (140-450); RED BLOOD CELL COUNT(AUTO) 5.26 MIL/uL (4.20-6.10); RED CELL DISTRIBUTION WIDTH 15.4 % (11.6-13.7); WHITE BLOOD COUNT (AUTO) 6.4 K/uL (4.8-10.8)
[2019-07-05 06:25] LABS: CARBON DIOXIDE 28.7 mmol/L (21-32); CREATININE 0.9 mg/dL (0.6-1.3); POTASSIUM 4.7 mmol/L (3.5-5.1); TOTAL BILIRUBIN 0.5 mg/dL (0.0-1.0)
--- NOTE | 2019-07-05 06:30 | NUR ---
PT IN BED RESTING COMFORTABLY NO S/S OF PAIN OR DISTRESS NOTED. PT CONTINUES ON DROPLET PRECAUTIONS.
--- NOTE | 2019-07-05 07:29 | NUR ---
RECEIVED PT FROM BALLPOINT PENS ASSEMBLER RN. PT IS AAOX4, COOPERATIVE AND ABLE TO MAKE NEEDS KNOWN. PT IN 5L VIA OXYMIZER. SKIN INTACT. ON BEDREST WITH URINAL AT BEDSIDE. PT IV INTACT. DISCUSSED POC WITH PT AND PT VERBALIZED UNDERSTANDING. ALL NEEDS MET. SAFETY MEASURES IN PLACE. BED IN LOW POSITION, CALL LIGHT WITHIN REACH. WILL ROUND FREQUENTLY ON PT.
[2019-07-05 08:00] VITALS: BP 107/59
[2019-07-05] MEDS: ZINC SULF 220 MG CAP PO SCH (09:00)
[2019-07-05] MEDS: ASCORBIC ACID 500 MG TAB PO SCH (09:00)
[2019-07-05] MEDS: LACTOBACILLUS RHAMNOSUS GG 1 EACH CAP PO SCH (09:00)
[2019-07-05] MEDS: ENOXAPARIN 40 MG/0.4 ML SYR SUBQ SCH (09:00)
--- NOTE | 2019-07-05 10:05 | NUR ---
ADMINISTERED MORNING MEDS TO PT. PT TOLERATED WELL. ALL NEEDS CURRENTLY MET. WILL CONTINUE TO ROUND FREQUENTLY ON PT. BED IN LOW POSITION, CALL LIGHT WITHIN REACH.
[2019-07-05 12:00] VITALS: BP 106/63
--- NOTE | 2019-07-05 12:37 | NUR ---
PT SLEEPING. ALL NEEDS MET. WILL CONTINUE TO ROUND FREQUENTLY ON PT. BED IN LOW POSITION, CALL LIGHT WITHIN REACH.
[2019-07-05] MEDS: NACL 0.9% 1,000 ML IV SCH ×2 (13:42→20:04)
--- NOTE | 2019-07-05 14:25 | NUR ---
PT ASLEEP. ALL NEEDS MET. WILL CONTINUE TO ROUND ON PT.
[2019-07-05 16:00] VITALS: BP 108/64
--- NOTE | 2019-07-05 16:38 | NUR ---
PT RESTING IN BED. ALL NEEDS MET.
--- NOTE | 2019-07-05 18:56 | NUR ---
PT TALKING ON THE PHONE. ALL NEEDS MET.
--- NOTE | 2019-07-05 19:30 | NUR ---
RECEIVED BEDSIDE REPORT FROM DAY SHIFT NURSE. PATIENT IS AWAKE, ALERT, AND COOPERATIVE. RESPIRATION EVEN UNLABORED ON 4L OXIMIZER O2. NO DISTRESS NOTED. SKIN IS WARM AND DRY. IV PATENT AND INTACT. PLAN OF CARE WAS DISCUSSED. ALL SAFETY MEASURES IN PLACE. BED IS AT LOW POSITION. CALL LIGHT WITHIN REACH AND VERBALIZES ITS USE. WILL CONTINUE TO MONITOR.
--- NOTE | 2019-07-05 19:34 | NUR ---
ENDORSED PT TO TALENT DIRECTOR FOR CONTINUITY OF CARE. PT IN STABLE CONDITION AT THIS TIME.
[2019-07-05 20:00] VITALS: BP 114/76
--- NOTE | 2019-07-05 20:04 | NUR ---
INITIAL ASSESSMENT DONE. VITALS WERE TAKEN. PATIENT COMPLAINED OF HEADACHE 06/05. PRN TYLENOL GIVEN PER ORDER. WILL CONTINUE TO MONITOR.
--- NOTE | 2019-07-05 20:59 | NUR ---
PT ON RESTING COMFORTABLY W/ NO SIGNS OF DISTRESS PT IS ON OXY 5L
--- NOTE | 2019-07-05 21:04 | NUR ---
CHECKED PATIENT. VERBALIZED RELIEF FROM TYLENOL. PATIENT IN STABLE CONDITION. SATING 96% ON 5L OXIMIZER. NO DISTRESS NOTED. WILL CONTINUE TO MONITOR
--- NOTE | 2019-07-05 23:15 | NUR ---
CHECKED PATIENT. PATIENT SLEEPING RESPIRATION EVEN UNLABORED ON 5L OXIMIZER. NO DISTRESS NOTED. WILL CONTINUE TO MONITOR.
[2019-07-06] VITALS: BP 107/68
--- NOTE | 2019-07-06 00:10 | NUR ---
VITALS WERE TAKEN. PATIENT IN STABLE CONDITION. NO DISTRESS NOTED. WILL CONTINUE TO MONITOR.
--- NOTE | 2019-07-06 02:13 | NUR ---
CHECKED PATIENT. PATIENT SLEEPING RESPIRATION EVEN UNLABORED ON 5L OXIMIZER. NO DISTRESS NOTED. WILL CONTINUE TO MONITOR.
[2019-07-06 04:00] VITALS: BP 103/68
--- NOTE | 2019-07-06 04:02 | NUR ---
VITALS WERE TAKEN. PATIENT IN STABLE CONDITION. NO DISTRESS NOTED. WILL CONTINUE TO MONITOR.
--- NOTE | 2019-07-06 07:13 | NUR ---
ENDORSED GIVEN TO DAY SHIFT NURSE. PATIENT IN STABLE CONDITION.
--- NOTE | 2019-07-06 07:14 | NUR ---
RECEIVED REPORT FROM STATISTICAL ASSISTANT NURSE. AOX4, NO C/O PAIN, NO SOB, RESPIRATIONS ARE EVEN AND UNLABORED. ON OXYMIZER AT 4L. IV ON RFA 20G ON NS 50CC/HR. TELEMONITOR ATTACHED. PLAN OF CARE DISCUSSED. PT VERBALIZED UNDERSTANDING. SAFETY PRECAUTIONS IN PLACE. CALL LIGHT WITHIN REACH. WILL CONTINUE TO MONITOR
[2019-07-06 07:22] LABS: HEMATOCRIT 44.2 % (36-52); HEMOGLOBIN 14.8 g/dL (12.0-18.0); MEAN CORPUSCULAR HEMOGLOBIN 28 pg (27-31); MEAN CORPUSCULAR HGB CONC 34 g/dL (33-37); MEAN CORPUSCULAR VOLUME 84.2 fL (80-94); PLATELET COUNT (AUTO) 402 K/uL (140-450); RED BLOOD CELL COUNT(AUTO) 5.25 MIL/uL (4.20-6.10); RED CELL DISTRIBUTION WIDTH 15.4 % (11.6-13.7)
[2019-07-06 07:54] LABS: ANION GAP 14.2 (8-16); CARBON DIOXIDE 25.1 mmol/L (21-32); CREATININE 0.9 mg/dL (0.6-1.3); PHOSPHORUS 2.8 mg/dL (2.5-4.9); POTASSIUM 4.3 mmol/L (3.5-5.1); TOTAL BILIRUBIN 0.5 mg/dL (0.0-1.0)
[2019-07-06 08:00] VITALS: BP 113/74
[2019-07-06 08:12] LABS: BASOPHILS % (MANUAL) 0 % (0-2); EOSINOPHILS % (MANUAL) 2 % (0-4); LYMPHOCYTES % (MANUAL) 12 % (20-46); MONOCYTES % (MANUAL) 10 % (5-12)
[2019-07-06] MEDS: ENOXAPARIN 40 MG/0.4 ML SYR SUBQ SCH (09:00)
--- NOTE | 2019-07-06 09:20 | NUR ---
DUE MORNING MEDS GIVEN. TOLERATED WELL.
--- NOTE | 2019-07-06 09:30 | NUR ---
07/06/19 RD FOLLOW UP COMPLETED PLEASE REFER TO NUTRITION PROGRESS NOTE UNDER CARE ACTIVITY FOR ESTIMATED NUTRITION NEEDS. RD RECOMMENDATIONS: 1. CONTINUE MECHANICAL SOFT REGULAR DIET TOLERATED 2. CONTINUE ENSURE TID 3. ENCOURAGE PO INTAKE >75% OF MEALS 4. RD TO FOLLOW-UP 2-3 DAYS, HIGH RISK ORALIA BEARD MS, RDN
[2019-07-06] MEDS: LACTOBACILLUS RHAMNOSUS GG 1 EACH CAP PO SCH (09:43)
[2019-07-06] MEDS: ASCORBIC ACID 500 MG TAB PO SCH (09:43)
[2019-07-06] MEDS: ZINC SULF 220 MG CAP PO SCH (09:44)
--- NOTE | 2019-07-06 10:50 | NUR ---
PT IN BED. TALKING TO FAMILY ON THE PHONE. IN STABLE CONDITION
[2019-07-06 12:00] VITALS: BP 118/67
--- NOTE | 2019-07-06 12:00 | NUR ---
TITERED 02 DOWN TO 3L VIA OXIMIZER. 02 SAT 94%. NO C/O PAIN, NO SOB, AFEBRILE, V/S WNL
--- NOTE | 2019-07-06 13:30 | NUR ---
TITRATED 02 TO 3L THEN CHANGE TO NASAL CANNULA. O2SAT 94%, NO SOB
--- NOTE | 2019-07-06 15:40 | NUR ---
PT IN BED. TALKING TO FAMILY ON THE PHONE. IN STABLE CONDITION
[2019-07-06 16:00] VITALS: BP 123/74
[2019-07-06] MEDS: NACL 0.9% 1,000 ML IV SCH (16:34)
--- NOTE | 2019-07-06 17:31 | NUR ---
PT IN BED. NO C/O PAIN, RESPIRATIONS ARE EVEN AND UNLABORED
--- NOTE | 2019-07-06 19:10 | NUR ---
ENDORSED TO CAR SALESPERSON NURSE FOR CONTINUITY OF CARE. IN STABLE CONDITION
--- NOTE | 2019-07-06 19:11 | NUR ---
RECEIVED BEDSIDE REPORT FROM DAY SHIFT NURSECURTIS. NO C/O PAIN, NO SOB, RESPIRATIONS ARE EVEN AND UNLABORED. ON NC 3L. IV ON RAC 20G ON NS 50CC/HR, LFA, 20G SL. PATENT, INTACT AND ASYMPTOMATIC. SKIN INTACT, WARM AND DRY TO TOUCH. PLAN OF CARE DISCUSSED. PT VERBALIZED UNDERSTANDING. SAFETY PRECAUTIONS IN PLACE. CALL LIGHT WITHIN REACH. WILL CONTINUE TO MONITOR
[2019-07-06 20:00] VITALS: BP 112/57
--- NOTE | 2019-07-06 22:15 | NUR ---
PT RESTING IN BED. NO ACUTE DISTRESS NOTED.
[2019-07-07] VITALS: BP 99/66
--- NOTE | 2019-07-07 00:01 | NUR ---
VS CHECKED, WITHIN PT'S BASELINE. WILL CONTINUE TO MONITOR.
--- NOTE | 2019-07-07 02:21 | NUR ---
PT SLEEPING IN BED COMFORTABLY. NO ACUTE DISTRESS NOTED.
[2019-07-07 04:00] VITALS: BP 99/49
--- NOTE | 2019-07-07 04:17 | NUR ---
VS CHECKED, WITHIN PT'S BASELINE, WILL CONTINUE TO MONITOR.
[2019-07-07 06:11] LABS: BASOPHILS % (AUTO) 0.7 % (0.0-2.0); EOSINOPHILS # (AUTO) 0.2 K/uL (0-0.4); EOSINOPHILS % (AUTO) 3.8 % (0.0-4.0); HEMATOCRIT 42.9 % (36-52); HEMOGLOBIN 14.5 g/dL (12.0-18.0); LYMPHOCYTES # (AUTO) 0.6 K/uL (2.0-11.5); LYMPHOCYTES % (AUTO) 11.6 % (20.5-51.1); MEAN CORPUSCULAR HEMOGLOBIN 28 pg (27-31); MEAN CORPUSCULAR HGB CONC 34 g/dL (33-37); MEAN CORPUSCULAR VOLUME 83.9 fL (80-94); MONOCYTES # (AUTO) 0.8 K/uL (0.8-1.0); MONOCYTES % (AUTO) 14.2 % (1.7-9.3); NEUTROPHILS # (AUTO) 3.8 K/uL (1.8-7.7); NEUTROPHILS % (AUTO) 69.7 % (42.2-75.2); PLATELET COUNT (AUTO) 474 K/uL (140-450); RED BLOOD CELL COUNT(AUTO) 5.12 MIL/uL (4.20-6.10); RED CELL DISTRIBUTION WIDTH 15.3 % (11.6-13.7); WHITE BLOOD COUNT (AUTO) 5.4 K/uL (4.8-10.8)
[2019-07-07 06:36] LABS: ALBUMIN 2.1 g/dL (3.4-5.0); CARBON DIOXIDE 28.4 mmol/L (21-32); CREATININE 0.9 mg/dL (0.6-1.3); MAGNESIUM 2.1 mg/dL (1.8-2.4); PHOSPHORUS 2.9 mg/dL (2.5-4.9); POTASSIUM 4.4 mmol/L (3.5-5.1); TOTAL BILIRUBIN 0.4 mg/dL (0.0-1.0)
--- NOTE | 2019-07-07 06:50 | NUR ---
PT IN STABLE CONDITION. WILL ENDORSE PT TO DAY SHIFT NURSELAKSHMI FOR CONTINUOUS CARE.
--- NOTE | 2019-07-07 07:15 | NUR ---
RECEIVED REPORT FROM WEB USER EXPERIENCE STRATEGIST NURSE DANYELLE FOR CONTINUITY OF CARE. PATIENT IN STABLE CONDITION. RESPIRATIONS EVEN AND UNLABORED, 02 3L VIA NC. IV INTACT AND PATENT. SAFETY MEASURES IN PLACE. BED IN LOW POSITION. CALL LIGHT WITHIN REACH. WILL CONTINUE TO MONITOR.
[2019-07-07 08:00] VITALS: BP 97/65
[2019-07-07] MEDS: ZINC SULF 220 MG CAP PO SCH (09:24)
[2019-07-07] MEDS: ASCORBIC ACID 500 MG TAB PO SCH (09:24)
--- NOTE | 2019-07-07 09:24 | NUR ---
GAVE ORDERED DUE MEDICATIONS. PATIENT TOLERATED WELL. BED IN LOW POSITION. CALL LIGHT WITHIN REACH. WILL CONTINUE TO MONITOR.
[2019-07-07] MEDS: LACTOBACILLUS RHAMNOSUS GG 1 EACH CAP PO SCH (09:25)
[2019-07-07] MEDS: ENOXAPARIN 40 MG/0.4 ML SYR SUBQ SCH (09:25)
--- NOTE | 2019-07-07 11:33 | NUR ---
PATIENT SLEEPING AT THIS TIME. RESPIRATIONS EVEN AND UNLABORED. 02 SATURATION 93%. BED IN LOW POSITION. CALL LIGHT WITHIN REACH. WILL CONTINUE TO MONITOR.
[2019-07-07 12:00] VITALS: BP 95/60
--- NOTE | 2019-07-07 13:24 | NUR ---
PATIENT EATING LUNCH AT THIS TIME. RESPIRATIONS EVEN AND UNLABORED. BED IN LOW POSITION. CALL LIGHT WITHIN REACH. WILL CONTINUE TO MONITOR.
--- NOTE | 2019-07-07 15:45 | NUR ---
LOWERED 02 FROM 3L TO 2L VIA NC. SATURATION 93%. PATIENT TOLERATED WELL. BED IN LOW POSITION. CALL LIGHT WITHIN REACH. WILL CONTINUE TO MONITOR.
[2019-07-07 16:00] VITALS: BP 103/66
[2019-07-07] MEDS: NACL 0.9% 1,000 ML IV SCH (16:06)
[2019-07-07] MEDS: guaiFENesin DM 200/20 MG-10 ML 10 ML UDC PO PRN (16:31)
--- NOTE | 2019-07-07 17:05 | NUR ---
PATIENT TALKING ON PHONE AT THIS TIME. BED IN LOW POSITION. CALL LIGHT AT BEDSIDE. WILL CONTINUE TO MONITOR.
--- NOTE | 2019-07-07 17:15 | NUR ---
PATIENT AMBULATED ON ROOM AIR, SATURATION GRADUALLY DROPPED TO 87%. PLACED PATIENT BACK ON O2 2L VIA NC, SATURATION 93%. PATIENT AT REST REMOVED 02, SATURATION GRADUALLY DROPPED TO 89-90%. BED IN LOW POSITION. CALL LIGHT WITHIN REACH. WILL CONTINUE TO MONITOR.
--- NOTE | 2019-07-07 19:16 | NUR ---
GAVE REPORT TO HELICOPTER PILOT INSTRUCTOR NURSE MICKEY FOR CONTINUITY OF CARE. PATIENT IN STABLE CONDITION.
--- NOTE | 2019-07-07 19:16 | NUR ---
RECEIVED PT AAOX4 , NOT IN ACUTE DISTRESS - O2 SAT WNL . DENIES ANY PAIN , ON TELE MONITOR. PLAN OF CARE DISCUSSED AND VERBALIZE UNDERSTANDING.SAFETY MEASURES IN PLACE . CALL LIGHT WITHIN REACH . WILL CONT. TO MONITOR.
[2019-07-07 20:00] VITALS: BP 100/65
--- NOTE | 2019-07-07 20:40 | NUR ---
RECEIVED PATIENT ON 2L NASAL CANNULA, PULSE OX SAT 93%. PATIENT DENIES SOB. PRN MDI NOT INDICATED AT THIS TIME. NO ACUTE RESPIRATORY DISTRESS NOTED AT THIS TIME. WILL CONTINUE TO MONITOR.
--- NOTE | 2019-07-07 23:30 | NUR ---
BP 83/53 - MEAN 66 , O2 SAT WNL . AFEBRIL , PT HAS POOR ORAL INTAKE - INFORM SHARON - NO FURTHER ORDER MADE - SR ON TELE MONITOR
[2019-07-08] VITALS: BP 93/63
--- NOTE | 2019-07-08 | NUR ---
MADE ROUNDS , RE CHECK BP - 93/63 , NO COMPLAIN MADE AT THIS TIME . WILL CONT. TO MONITOR.
--- NOTE | 2019-07-08 02:00 | NUR ---
MADE ROUNDS , NO S/S OF ACUTE DISTRESS NOTED AT THIS TIME - O2 SAT WNL. WILL CONT. TO MONITOR.
[2019-07-08 04:00] VITALS: BP 95/60
--- NOTE | 2019-07-08 04:00 | NUR ---
MADE ROUNDS , RESP. EVEN AND UNLABORED - BP 95/60 - O2 SAT WNL. WILL CONT. TO MONITOR.
[2019-07-08 06:23] LABS: HEMATOCRIT 43.6 % (36-52); HEMOGLOBIN 14.7 g/dL (12.0-18.0); MEAN CORPUSCULAR HEMOGLOBIN 28 pg (27-31); MEAN CORPUSCULAR HGB CONC 34 g/dL (33-37); MEAN CORPUSCULAR VOLUME 83.7 fL (80-94); RED CELL DISTRIBUTION WIDTH 14.7 % (11.6-13.7); WHITE BLOOD COUNT (AUTO) 3.7 K/uL (4.8-10.8)
[2019-07-08 06:33] LABS: ALBUMIN 2.1 g/dL (3.4-5.0); ANION GAP 10.5 (8-16); CARBON DIOXIDE 30.1 mmol/L (21-32); POTASSIUM 4.6 mmol/L (3.5-5.1); TOTAL BILIRUBIN 0.4 mg/dL (0.0-1.0)
--- NOTE | 2019-07-08 07:15 | NUR ---
Received report from pm nurse Kandice. Pt asleep in bed, respirations even & nonlabored with visible chest rise & fall. On O2 @ 3Lpm via n/c. Right AC IV intact with ongoing NS @ 50ml/hr. Call light within reach.
[2019-07-08 08:00] VITALS: BP 94/66
[2019-07-08] MEDS: ZINC SULF 220 MG CAP PO SCH (09:09)
[2019-07-08] MEDS: ASCORBIC ACID 500 MG TAB PO SCH (09:09)
[2019-07-08] MEDS: LACTOBACILLUS RHAMNOSUS GG 1 EACH CAP PO SCH (09:09)
[2019-07-08] MEDS: ENOXAPARIN 40 MG/0.4 ML SYR SUBQ SCH (09:29)
[2019-07-08 09:41] LABS: PLATELET COUNT (AUTO) 543 K/uL (140-450)
[2019-07-08 09:43] LABS: EOSINOPHILS % (MANUAL) 3 % (0-4); LYMPHOCYTES % (MANUAL) 23 % (20-46); MONOCYTES % (MANUAL) 12 % (5-12)
[2019-07-08] MEDS ORDERED: VITAMIN D 400 IU TAB PO SCH (10:45)
--- NOTE | 2019-07-08 11:15 | NUR ---
Spoke to Chiquita (daughter) on the phone and notified of discharge plan today, pending delivery of O2 setup at home. Daughter verbalized understanding and agree with discharge plans.
[2019-07-08 12:00] VITALS: BP 102/56
[2019-07-08] MEDS ORDERED: RIVA20TA PO (12:11)
--- NOTE | 2019-07-08 14:30 | NUR ---
Informed Nathalia of discharge plans with pending O2 delivery. Pt's home and delivery address verified with Nathalia: [address], [address], [place], [place]. Admitting notified of address update.
--- NOTE | 2019-07-08 15:15 | NUR ---
Received delivery of O2 concentrator to nurse station. Per tanker truck driver, will be heading next to pt's home to deliver O2 concentrator. Verified delivery address with tanker truck driver: [address] [facility], [place], [place] and provided with Nathalia's (daughter) contact number.
--- NOTE | 2019-07-08 15:18 | NUR ---
Informed Nathalia via phone that portable O2 tank has been delivered and patient may discharge anytime. Per Nathalia, will be coming to bulk picker patient around 4 - 5pm.
[2019-07-08 16:00] VITALS: BP 104/69
--- NOTE | 2019-07-08 16:50 | NUR ---
Right AC IV 22G and left forearm IV 20G discontinued, cannulas intact, site covered with dry gauze and tape. Pt able to independently don personal clothes. Informed pt that his daughter will be coming to pick him up. Verbalized understanding.
--- NOTE | 2019-07-08 17:15 | NUR ---
Pt discharged at this time with portable O2 tank on 2Lpm via n/c. Pt left unit via wheelchair, daughter Nathalia at front lobby to transport pt with private car. Discharge instructions re: meds, f/u appt, and COVID-19 precautions provided to daughter per pt request, pt and family demonstrated understanding of teachings provided. All belongings with pt upon departure.
== END 2019-07-08 17:15 | disposition home or self-care (01) | DRG 137 ==
LOC: MED 21:23 → EDSEX 21:23 → EEVIPCON 21:23 → MMU 06-28 00:58 → MIC 06-30 18:12 → MMU 07-04 14:35
PROVIDERS: ADMIT General Practice; ATTEND General Practice
DX: U07.1 COVID-19 (principal); E43 Unspecified severe protein-calorie malnutrition; J81.1 Chronic pulmonary edema; J12.89 Other viral pneumonia; E87.6 Hypokalemia; E83.39 Other disorders of phosphorus metabolism; Z68.26 Body mass index [BMI] 26.0-26.9, adult; R74.0 Nonspecific elevation of levels of transaminase and lactic acid dehydrogenase [LDH]
CPT/HCPCS: 36415; 36600; 71045; 80048; 80053; 80305; 81001; 82550; 82553; 82728; 82803; 83036; 83605; 83615; 83625; 83735; 83880; 84100; 84443; 84484; 85025; 85379; 85384; 85610; 85651; 85730; 86140; 86900; 86901; 87040; 87081; 87086; 87420; 87804; 93005; 94664; 96365; 99291; J0456; J0696; J1650; J1940; J7030; J7060; Q0092